=== PATIENT | female | born 1965 | race Hispanic/Latino ===

== ENCOUNTER 2019-06-04 03:28 | Inpatient (IN) | payer SELFPAY ==
[~2019-06-04] VITALS: Ht 167.6 cm; Wt 73.6 kg
[2019-06-04] VITALS (12 sets, daily range): BP systolic 127–152; BP diastolic 64–87
[2019-06-04 03:53] LABS: APPEARANCE,URINE Cloudy (CLEAR); BILIRUBIN,URINE Negative (NEGATIVE); COLOR,URINE Dark Yellow (YELLOW); GLUCOSE, URINE (UA) Negative (NEGATIVE); KETONES,URINE 40 mg/dL (NEGATIVE); LEUKOCYTE ESTERASE ,URINE Negative (NEGATIVE); NITRATE,URINE Negative (NEGATIVE); OCCULT BLOOD,URINE Small (NEGATIVE); PH,URINE 5.5 (5.0-8.0); PROTEIN,URINE POS 1+ mg/dL (NEGATIVE)
[2019-06-04 03:56] LABS: BASOPHILS % (AUTO) 0.5 % (0.0-5.0); EOSINOPHILS % (AUTO) 0.7 % (0.0-8.0); HEMATOCRIT 44.8 % (36-48); LYMPHOCYTES % (AUTO) 10.7 % (21.0-51.0); MEAN CORPUSCULAR HEMOGLOBIN 30.1 pg (27.0-33.0); MEAN CORPUSCULAR HGB CONC 34.4 g/dL (32.0-36.0); MEAN CORPUSCULAR VOLUME 87.6 fL (79-99); MONOCYTES % (AUTO) 7.1 % (3.0-13.0); PLATELET COUNT (AUTO) 209 K/uL (130-400); RED BLOOD CELL COUNT(AUTO) 5.11 MIL/uL (4.00-5.50); RED CELL DISTRIBUTION WIDTH 13.3 % (11.0-15.5); WHITE BLOOD COUNT (AUTO) 12.6 K/uL (4.8-10.8)
[2019-06-04] MEDS ORDERED: METOCLOPRAMIDE 10 MG/2 ML VIAL ONE (03:56)
[2019-06-04] MEDS ORDERED: ONDANSETRON HCL 4 MG/2 ML VIAL ONE ×2 (03:56→20:40)
[2019-06-04] MEDS ORDERED: FAMOTIDINE/PF 20 MG/2 ML VIAL IV ONE (03:57)
[2019-06-04] MEDS ORDERED: SODIUM CHLORIDE 0.9% 1000ML 2,000 ML IV ONE (03:57)
[2019-06-04 04:02] LABS: CREATININE 0.7 mg/dL (0.5-1.5); POTASSIUM 3.8 mmol/L (3.5-5.1)
[2019-06-04 04:07] LABS: ALBUMIN 3.7 g/dL (3.5-5.0); BILIRUBIN,TOTAL 0.6 mg/dL (0.2-1.0)
[2019-06-04 04:08] LABS: INR 0.95 (0.85-1.15); PARTIAL THROMBOPLASTIN TIME 27.5 SEC (26.3-35.5)
[2019-06-04 04:29] LABS: BACTERIA,URINE Moderate /HPF (None Seen); MUCUS,URINE Moderate LPF (None Seen); WBC,URINE 0-1 /HPF (0-1)
[2019-06-04] MEDS ORDERED: LIDOCAINE HCL 2% VISCOUS 15 ML UDCUP ONE (05:11)
[2019-06-04] MEDS ORDERED: MAG HYDROX/AL HYDROX/SIMETH ES 30 ML SUSP UDCUP ONE (05:11)
[2019-06-04] MEDS ORDERED: DiphenhydrAMINE HCL 50 MG/ML VIAL ONE (05:12)
[2019-06-04] MEDS ORDERED: KETOROLAC TROMETHAMINE 30MG/ML ONE (05:12)
[2019-06-04] MEDS ORDERED: ZOSYN 3.375GM+NS 50ML 50 ML IV ONE (05:45)
[2019-06-04] MEDS: ZOSYN 3.375GM+NS 50ML 50 ML IV SCH ×2 (07:00→17:10)
[2019-06-04] MEDS ORDERED: KETOROLAC TROMETHAMINE 15MG/ML IM PRN (07:00)
[2019-06-04] MEDS ORDERED: ONDANSETRON HCL 4 MG/2 ML VIAL IVP PRN (07:00)
[2019-06-04] MEDS ORDERED: SODIUM CHLORIDE 0.9% 1000ML 1,000 ML IV SCH (07:00)
[2019-06-04] MEDS ORDERED: ACETAMINOPHEN 650 MG SUPPOSITORY RC PRN (07:00)
[2019-06-04] MEDS ORDERED: DiphenhydrAMINE HCL 50 MG/ML VIAL IV PRN (08:00)
--- NOTE | 2019-06-04 09:10 | NUR ---
REPORT RECEIVED FROM DAISHA PATEL (ED). PATIENT WITH C/O RUQ PAIN. PATIENT ADMITTED UNDER DR. MURRAY FOR ACUTE CHOLECYSTITIS. DR. KELLY CONSULTED AND AWARE OF CASE BY DAISHA PATEL. HIDA SCAN PENDING TO BE DONE. PATIENT STABLE AT THIS TIME.
[2019-06-04] MEDS: FAMOTIDINE/PF 20 MG/2 ML VIAL IV SCH ×2 (09:30→20:03)
[2019-06-04] MEDS ORDERED: CETI-101 PO (11:44)
[2019-06-04] MEDS ORDERED: OMEP20TA25 PO (11:44)
[2019-06-04] MEDS ORDERED: UBID100C10 PO (11:44)
--- NOTE | 2019-06-04 12:30 | NUR ---
MARY NOTE- INITIAL ASSESSMENT MET W PT ALONE,Rosa Maria AAOX3, RECENTLY RELOCATED TO THE [facility], LIVING W MOM, WKG AT [facility], NO MD IN THE AREA, EXPECTING TO HAVE G/BLADDER SURGERY ON THIS ADMIT; DC HOME DISCUSSED [facility], WILL FOLLOW Addendum: 06/04/19 at 1232 by JAYSHREE FU RN CM Amended: Links added.
[2019-06-04] MEDS: MORPHINE SULFATE 4 MG/1ML SYG IV PRN (14:32)
[2019-06-04] MEDS ORDERED: LIDOCAINE PF 2% 5ML ABBOJECT ONE (20:38)
[2019-06-04] MEDS ORDERED: DEXAMETHASONE SOD PHOSPHATE 10MG/ML 1ML VIAL ONE (20:38)
[2019-06-04] MEDS ORDERED: SUCCINYLCHOLINE 200MG/10ML SYR ONE (20:38)
[2019-06-04] MEDS ORDERED: NEOSTIGMINE 5MG/5ML SYR IV ONE (20:39)
[2019-06-04] MEDS ORDERED: GLYCOPYRROLATE 1 MG/5 ML SYRINGE ONE (20:39)
[2019-06-04] MEDS ORDERED: MIDAZOLAM HCL 1 MG/ML 2ML VIAL ONE (20:39)
[2019-06-04] MEDS ORDERED: PROPOFOL 10 MG/ML 20ML VIAL IV ONE (20:39)
[2019-06-04] MEDS ORDERED: ROCURONIUM 10MG/1ML SYR 10 MG/ML ML ONE (20:40)
[2019-06-04] MEDS ORDERED: FENTANYL CITRATE PF 50 MCG/1 ML 2ML VIAL ONE ×3 (20:40→23:15)
[2019-06-04] MEDS ORDERED: BUPIVACAINE/PF 0.5% 30ML VIAL ONE (21:07)
[2019-06-04] MEDS ORDERED: ESMOLOL HCL 10 MG/ML 10 ML VIAL ONE (22:11)
[2019-06-05] VITALS (12 sets, daily range): BP systolic 109–145; BP diastolic 65–85
[2019-06-05] MEDS: ZOSYN 3.375GM+NS 50ML 50 ML IV SCH ×3 (00:05→15:14)
--- NOTE | 2019-06-05 00:06 | NUR ---
patient returned from laparoscopic cholecystectomy and has pain to her abdomen. claims that Tynelol #3 gives her problems, so she prefers morphine 4 mg as ordered for pain. her 4 incisions are clean, dry, and intact with telfa and tegaderm. Pain voided in the toilet. No issues.
[2019-06-05] MEDS ORDERED: ACETAMINOPHEN-CODEINE 300/30MG TAB PO PRN (00:45)
[2019-06-05] MEDS: MORPHINE SULFATE 4 MG/1ML SYG IV PRN ×3 (00:47→13:35)
[2019-06-05 05:15] LABS: BASOPHILS % (AUTO) 0.2 % (0.0-5.0); HEMATOCRIT 40.3 % (36-48); LYMPHOCYTES % (AUTO) 3.2 % (21.0-51.0); MEAN CORPUSCULAR HEMOGLOBIN 30.1 pg (27.0-33.0); MEAN CORPUSCULAR HGB CONC 34.3 g/dL (32.0-36.0); MEAN CORPUSCULAR VOLUME 87.6 fL (79-99); MONOCYTES % (AUTO) 3.5 % (3.0-13.0); NEUTROPHILS % (AUTO) 93.1 % (40.0-77.0); PLATELET COUNT (AUTO) 183 K/uL (130-400); RED CELL DISTRIBUTION WIDTH 13.1 % (11.0-15.5); WHITE BLOOD COUNT (AUTO) 10.8 K/uL (4.8-10.8)
[2019-06-05 05:23] LABS: CREATININE 0.8 mg/dL (0.5-1.5); POTASSIUM 4.2 mmol/L (3.5-5.1)
[2019-06-05] MEDS: FAMOTIDINE/PF 20 MG/2 ML VIAL IV SCH (08:56)
[2019-06-05] MEDS: TRAMADOL HCL 50 MG TABLET PO PRN ×2 (08:56→15:30)
[2019-06-05] MEDS ORDERED: ENOXAPARIN SODIUM 30 MG/0.3 ML SQ SCH (09:00)
[2019-06-05 10:39] LABS: CREATININE 0.8 mg/dL (0.5-1.5); POTASSIUM 4.2 mmol/L (3.5-5.1)
[2019-06-05 10:45] LABS: ALBUMIN 2.8 g/dL (3.5-5.0); BILIRUBIN,TOTAL 1.1 mg/dL (0.2-1.0); TOTAL PROTEIN, SERUM 6.4 g/dL (6.0-8.3)
--- NOTE | 2019-06-05 18:10 | NUR ---
DISCHARGED NOW USING TEACH BACK . WILL FOLLOW UP WITH DR. KELLY IN 2 WEEKS . 4 SM PUNCTURE SCATTERED ACROSS ABD. CLEAN AND DRY. WOUNDS WELL CLOSED WITH JACK IN PLACE. INST. GIVEN ON WOUND CARE. PARENT PRESENT AND BOTH VERBALIZE UNDERSTANDING.RX IN HAND FOR TRAMADOL, ALSO GIVEN. INDICTIONS AND SIDE EFFECTS PROVIDED
== END 2019-06-05 18:10 | disposition home or self-care (01) | DRG 419 ==
LOC: EDH 03:28 → EDHIP 03:29 → OBSVTOIN 03:29 → 3BH 08:28
PROVIDERS: ADMIT Hospitalist; ATTEND Hospitalist
PROC: 0FT44ZZ Resection of Gallbladder, Percutaneous Endoscopic Approach (ICD-10-PCS; principal; 2019-06-04 21:49)
DX: K80.00 Calculus of gallbladder with acute cholecystitis without obstruction (principal); F17.200 Nicotine dependence, unspecified, uncomplicated
CPT/HCPCS: 36415; 76705; 78226; 80048; 80053; 81001; 83690; 84484; 85025; 85610; 85730; 88304; 93005; A9537; G0378; J0330; J1100; J1200; J1650; J1885; J2001; J2250; J2270; J2405; J2543; J2704; J2710; J2765; J3010; J3490; J7030